=== PATIENT | male | born 1985 | race Two or more races ===

== ENCOUNTER 2016-11-26 12:39 | Emergency (ER) | payer MEDICAID ==
--- NOTE | 2016-11-26 13:40 | ED Physician Documentation ---
PD HPI UPPER EXT INJURY - Stated complaint Stated Complaint: R SHOULDER PX - Chief complaint Chief Complaint: Ext Problem - History obtained from History obtained from: Patient PD PAST MEDICAL HISTORY - Past Medical History Past Medical History: No - Past Surgical History Past Surgical History: Yes Ortho: Other - Allergies Allergies/Adverse Reactions: Allergies Allergy/AdvReac Type Severity Reaction Status Date / Time Penicillins Allergy Hives Verified 11/26/16 13:05 - Social History Does the pt smoke?: No Smoking Status: Never smoker Does the pt drink ETOH?: No Does the pt have substance abuse?: No - Immunizations Immunizations are current?: Yes Results - Vitals Vitals: Vital Signs - 24 hr 11/26/16 13:03 Temperature 36.3 C L Heart Rate 61 Respiratory 18 Rate Blood Pressure 120/73 O2 Saturation 100 Oxygen O2 Source Room air
--- NOTE | 2016-11-26 13:52 | ED Physician Documentation ---
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 no relief with motrin. Feels better with warm shower. Review of Systems Constitutional: denies: Fever, Chills Ears: denies: Ear pain Nose: denies: Rhinorrhea / runny nose, Congestion Throat: denies: Sore throat Cardiac: denies: Chest pain / pressure Respiratory: denies: Cough GI: denies: Abdominal Pain, Nausea, Vomiting, Diarrhea Skin: denies: Rash Musculoskeletal: denies: Neck pain, Back pain Neurologic: denies: Focal weakness, Numbness, Headache PD PAST MEDICAL HISTORY - Past Medical History Past Medical History: No - Past Surgical History Past Surgical History: Yes Ortho: Other - Present Medications Home Medications: Ambulatory Orders Medication Instructions Recorded Confirmed Cyclobenzaprine [Flexeril] 10 mg PO TID PRN #20 tablet 11/26/16 Meloxicam [Mobic] 7.5 mg PO BID PRN #20 tablet 11/26/16 - Allergies Allergies/Adverse Reactions: Allergies Allergy/AdvReac Type Severity Reaction Status Date / Time Penicillins Allergy Hives Verified 11/26/16 13:05 - Social History Does the pt smoke?: No Smoking Status: Never smoker Does the pt drink ETOH?: No Does the pt have substance abuse?: No - Immunizations Immunizations are current?: Yes PD ED PE NORMAL - Vitals Vital signs reviewed: Yes - General General: Alert and oriented X 3 - Derm Derm: Warm and dry - Extremities Extremities: Other (R shoulder limited extension and internal rotation 2/2 pain. NVI. Pain is present to the right paraspinal aspect of approximately T4 through T6. There is no midline tenderness. No swelling. No skin changes. No bony tenderness. Axillary nerve intact) - Neuro Neuro: Alert and oriented X 3, No motor deficit, No sensory deficit - Psych Psych: Normal mood Results - Vitals Vitals: Vital Signs - 24 hr 11/26/16 11/26/16 13:03 14:25 Temperature 36.3 C L Heart Rate 61 68 Respiratory 18 12 Rate Blood Pressure 120/73 119/64 O2 Saturation 100 100 Oxygen O2 Source Room air PD MEDICAL DECISION MAKING - ED course Complexity details: reviewed results, re-evaluated patient, considered differential, d/w patient ED course: Patient is a 31-year-old male who presents to the emergency department with right paraspinal muscle strain, rhomboid strain. We will place him on muscle relaxants for home as well as pain medication and have him follow-up with his doctor. He is well-appearing, nontoxic. Afebrile. No history of IV drug use. No evidence of cauda equina or epidural abscess. No evidence of fracture. Patient counseled regarding signs and symptoms for which I believe and urgent re -evaluation would be necessary. Patient with good understanding of and agreement to plan and is comfortable going home at this time This document was made in part using voice recognition software. While efforts are made to proofread this document, sound alike and grammatical errors may occur. Departure - Departure Disposition: 01 Home, Self Care Clinical Impression: Trapezius muscle spasm Rhomboid muscle strain Qualifiers: Encounter type: initial encounter Qualified Code(s): S29.012A - Strain of muscle and tendon of back wall of thorax, initial encounter Condition: Good Instructions: ED Sprain Thoracic Spine Follow-Up: Lamonte Bobo MD [Primary Care Provider] - Within 1 week Prescriptions: Cyclobenzaprine [Flexeril] 10 mg PO TID PRN #20 tablet PRN Reason: Spasms Meloxicam [Mobic] 7.5 mg PO BID PRN #20 tablet PRN Reason: pain Comments: Return if you worsen. Wear the sling for the next 2-3 days and then start to gently move your arm. Do not drive or operate heavy machinery while taking the Flexeril. Continue gently stretching at home. Forms: Activity restrictions Discharge Date/Time: 11/26/16 14:25
[2016-11-26] MEDS ORDERED: KETOROLAC 60 MG/2 ML VIAL IM STA (14:04)
[2016-11-26] MEDS ORDERED: KETOROLAC 30 MG/ML VIAL ONE (14:09)
[2016-11-26 14:25] VITALS: BP 119/64
== END 2016-11-26 14:25 | disposition home or self-care (01) ==
LOC: ED 12:39
DX: S29.012A Strain of muscle and tendon of back wall of thorax, initial encounter (principal); M62.830 Muscle spasm of back; X50.0XXA Overexertion from strenuous movement or load, initial encounter; Y99.0 Civilian activity done for income or pay
CPT/HCPCS: 96372; 99283